=== PATIENT | female | born 2000 | race Hispanic/Latino ===

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

== ENCOUNTER 2018-03-23 12:43 | Emergency (ER) | payer OTHER ==
[~2018-03-23] VITALS: Ht 160 cm; Wt 81.6 kg
[2018-03-23] MEDS ORDERED: FAMOTIDINE 20 MG TAB PO ONE (13:00)
[2018-03-23] MEDS ORDERED: PREDNISONE 20 MG TAB PO ONE (13:00)
[2018-03-23] MEDS ORDERED: ONDANSETRON HCL INJ 2 MG/ML VIAL IV STA (13:04)
[2018-03-23] MEDS ORDERED: FAMOTIDINE 20 MG/2 ML VIAL IV NR (13:04)
[2018-03-23] MEDS ORDERED: SODIUM CHLORIDE 0.9% 1000ML 1,000 ML IV SCH (13:15)
[2018-03-23] MEDS ORDERED: DEXAMETHASONE SOD PHOS 10 MG/1 ML VIAL IV NR (13:15)
[2018-03-23] MEDS ORDERED: BENADRYL25 M1 PO (13:16)
[2018-03-23] MEDS ORDERED: EPINEPHRIN0.3 MG/0.3 IM (13:16)
[2018-03-23] MEDS ORDERED: PREDNISONE20 MG PO (13:16)
[2018-03-23] MEDS ORDERED: PEPCID20 MG PO (13:16)
[2018-03-23] MEDS ORDERED: ZOFRAN4 MG SL (13:17)
[2018-03-23 13:41] LABS: BASOPHILS # (AUTO) 0.1 (0.0-0.1); BASOPHILS % 1.1 % (0.0-1.0); EOSINOPHILS # (AUTO) 0.2 (0.0-0.4); HEMOGLOBIN 15.6 g/dL (12.0-16.0); LYMPHOCYTES # (AUTO) 2.5 (1.0-3.2); LYMPHOCYTES % 37.7 % (18.0-39.1); MEAN CORPUSCULAR HEMOGLOBIN 30.1 pg (28-32); MEAN CORPUSCULAR HGB CONC 33.9 g/dL (31-35); MEAN CORPUSCULAR VOLUME 88.8 fL (81-99); MONOCYTES # (AUTO) 0.4 (0.2-0.8); MONOCYTES % 5.8 % (4.4-11.3); NEUTROPHILS # (AUTO) 3.5 (2.1-6.9); NEUTROPHILS % 52.2 % (38.7-80.0); PLATELET COUNT 291 x10e3/uL (140-360); RED BLOOD COUNT 5.18 x10e6/uL (3.6-5.1); RED CELL DISTRIBUTION WIDTH 12.4 % (11.7-14.4)
[2018-03-23 14:01] LABS: ALANINE AMINOTRANSFERASE 38 IU/L (0-55); ALBUMIN 4.3 g/dL (3.5-5.0); ALBUMIN/GLOBULIN RATIO 0.9 (0.8-2.0); ALKALINE PHOSPHATASE 86 IU/L (40-150); AMYLASE 70 U/L (25-125); ANION GAP 14.9 mmol/L (8-16); BLOOD UREA NITROGEN 8 mg/dL (7-26); BUN/CREATININE RATIO 10 (6-25); CARBON DIOXIDE 25 mmol/L (22-29); CHLORIDE 105 mmol/L (98-107); CREATININE, SERUM 0.77 mg/dL (0.57-1.11); EST GLOMERULAR FILTRATION RATE > 60 ML/MIN (60-); GLUCOSE 78 mg/dL (74-118); LIPASE 8 U/L (8-78); POTASSIUM 3.9 mmol/L (3.5-5.1); SODIUM 141 mmol/L (136-145)
[2018-03-23 14:04] LABS: BILIRUBIN,URINE NEGATIVE (NEGATIVE); CLARITY,URINE CLEAR (CLEAR); COLOR,URINE YELLOW (YELLOW); KETONES,URINE NEGATIVE (NEGATIVE); LEUKOCYTE ESTERASE ,URINE NEGATIVE (NEGATIVE); NITRITE,URINE NEGATIVE (NEGATIVE); PROTEIN,URINE DIPSTICK NEGATIVE (NEGATIVE); URINE UROBILINOGEN 0.2 mg/dL (0.2 - 1)
[2018-03-23 14:10] LABS: HCG,QUANTITATIVE < 1.20 mIU/mL (0-10)
[2018-03-23 14:17] LABS: BACTERIA,URINE MODERATE /HPF; EPITHELIAL CELLS,URINE FEW /LPF; RBC,URINE 0-5 /HPF (0-5); WBC,URINE (MAN) 0-5 /HPF (0-5)
== END 2018-03-23 15:27 | disposition home or self-care (01) ==
LOC: ER 12:43
DX: L50.0 Allergic urticaria (principal); L24.3 Irritant contact dermatitis due to cosmetics; R11.2 Nausea with vomiting, unspecified
CPT/HCPCS: 36415; 80053; 81001; 82150; 83690; 84702; 85025; 99284; J1100; J2405; J7030

== ENCOUNTER 2018-07-24 06:04 | Emergency (ER) | payer MEDICARE, OTHER ==
[~2018-07-24] VITALS: Ht 160 cm; Wt 81.6 kg
[~2018-07-24 06:04] MED LIST: BENADRYL25 M1 PO; EPINEPHRIN0.3 MG/0.3 IM; PEPCID20 MG PO; PREDNISONE20 MG PO; ZOFRAN4 MG SL
--- OUTSIDE RECORDS SUMMARY | 2018-07-24 06:06 | XMS REPORT | Clinical Summary ---
Author Author [facility] Organization [facility] Address Unknown Phone Unavailable Care Team Providers Care Ferruler Name Role Phone Neal Santa MD PCP Allergies No Known Allergies Medications End Date Status Medication Sig Dispensed Refills Start Date Active amoxicillin (AMOXIL) 500 0 mg capsule 8 Active meclizine (ANTIVERT) 25 0 mg Tab 8 Active ondansetron (ZOFRAN-ODT) 0 4 mg disintegrating 8 tablet Active hydrocortisone 1 % Apply to 30 g 0 ointmentIndications: Rash affected area 8 and other nonspecific 2 times skin eruption daily. 12/30/2017 Discontinued acetic acid 2 % otic Instill 4 15 mL 0 solutionIndications: Drops in 8 Impacted cerumen of right right ear 3 ear times daily for 7 days. 12/30/2017 Discontinued acetic acid 2 % otic Instill 4 15 mL 0 solutionIndications: Drops in 8 Impacted cerumen of right right ear 3 ear times daily for 7 days. 01/06/2018 acetic acid 2 % otic Instill 4 15 mL 0 solutionIndications: Drops in 8 Impacted cerumen of right right ear 3 ear times daily for 7 days. Active Problems No known active problems Encounters Care Team Description Date Type Specialty Neal Santa MD Serum total bilirubin elevated 01/17/2018 Orders Only Family Practice Neal Santa MD Results 01/02/2018 Telephone Family Practice Neal Santa MD Serum total bilirubin elevated (Primary Dx) 01/02/2018 Orders Only Family Practice Neal Santa MD Preventative health care (Primary Dx); Rash and other nonspecific skin eruption; Syncope and collapse; Impacted cerumen of right ear; Lump in neck 12/30/2017 Office Visit Family Practice Neal Santa MD Syncope and collapse 12/30/2017 Orders Only Family Practice after 07/23/2017 Family History Medical History Relation Name Comments Arthritis Mother Diabetes Mother Hypertension Mother Relation Name Status Comments Mother Social History Date Tobacco Use Types Packs/Day Years Used Never Smoker Smokeless Tobacco: Never Used Alcohol Use Drinks/Week oz/Week Comments Yes social Sex Assigned at Date Recorded Not on file Industry Job Start Date Occupation Not on file Not on file Not on file Travel End Travel History Travel Start No recent travel history available. Last Filed Vital Signs Time Taken Vital Sign Reading 12/30/2017 10:39 AM CDT Blood Pressure 107/61 12/30/2017 10:39 AM CDT Pulse 78 12/30/2017 10:39 AM CDT Temperature 36.8 C (98.3 F) 12/30/2017 10:39 AM CDT Respiratory Rate 18 - Oxygen Saturation - - Inhaled Oxygen - Concentration 12/30/2017 10:39 AM CDT Weight 81.6 kg (180 lb) 12/30/2017 10:39 AM CDT Height 160 cm (5' 3") 12/30/2017 10:39 AM CDT Body Mass Index 31.89 Plan of Treatment Health Maintenance Due Date Last Done Comments IMM Influenza Seasonal 05/12/2018May to October (>/=19 yrs) Procedures Comments Procedure Name Priority Date/Time Associated Diagnosis LIPID PROFILE Routine 01/17/2018 9:38 AM CDT BILIRUBIN, DIRECT Routine 01/17/2018 Serum total bilirubin 9:38 AM CDT elevated TSH Routine 12/30/2017 Preventative [facility] care 11:27 AM CDT Rash and other nonspecific skin eruption FREE T4 Routine 12/30/2017 Preventative health care 11:27 AM CDT Rash and other nonspecific skin eruption HEPATITIS PANEL Routine 12/30/2017 [facility]ative [facility] care 11:27 AM CDT Rash and other nonspecific skin eruption SYPHILIS SCREEN FOR Routine 12/30/2017 Preventative [facility] care INFECTION 11:27 AM CDT Rash and other nonspecific skin eruption HIV-1/HIV-2 ROUTINE Routine 12/30/2017 Preventative health care SCREENING 11:27 AM CDT Rash and other nonspecific skin eruption LIVER PROFILE Routine 12/30/2017 Preventative [facility] care 11:27 AM CDT Rash and other nonspecific skin eruption BASIC METABOLIC PANEL Routine 12/30/2017 Preventative health care 11:27 AM CDT Rash and other nonspecific skin eruption HEMOGLOBIN A1C Routine 12/30/2017 Preventative health care 11:27 AM CDT Rash and other nonspecific skin eruption CBC/DIFF Routine 12/30/2017 Preventative health care 11:27 AM CDT Rash and other nonspecific skin eruption after 07/23/2017 Results * LIPID PROFILE (01/17/2018 9:38 AM CDT) Cholesterol 191 mg/dL [facility] Comment: 1 REFERENCE RANGE: Desirable: <200 mg/dL Borderline: 200-240 mg/dL High Risk: >240 mg/dL Triglyceride 228 (H) <150 mg/dL [facility] Comment: 1 REFERENCE RANGE: Normal: <150 mg/dL Borderline High: 150-199 mg/dL High: 200-499 mg/dL Very High: >tm=778 mg/dL HDL 29 mg/dL [facility] Comment: 1 Increased CHD risk: <40 mg/dL Decreased CHD risk: >60 mg/dL LDL 116 mg/dL [facility] Comment: 1 REFERENCE RANGE: Optimal: <100 mg/dL Near Optimal: 100-129 mg/dL Borderline High: 130-159 mg/dL High: 160-189 mg/dL Very High: >nt=132 mg/dL Performing Organization Address City/State/Zipcode Phone Number [facility] 1 * BILIRUBIN, DIRECT (01/17/2018 9:38 AM CDT) D Bilirubin 0.1 0.0 - 0.2 mg/dL [facility] 1 Specimen Blood Performing Organization Address City/State/Zipcode Phone Number [facility] * SYPHILIS SCREEN FOR INFECTION (12/30/2017 11:27 AM CDT) Treponemal Ab Negative BT DIAGNOSTIC IMMUNOLOGY Final Report Negative BT DIAGNOSTIC IMMUNOLOGY Performing Organization Address [facility] Phone Number [facility] BT DIAGNOSTIC IMMUNOLOGY * HIV-1/HIV-2 ROUTINE SCREENING (12/30/2017 11:27 AM CDT) HIV-1/HIV-2 Negative NEG [facility] 2 Performing Organization Address [facility] Phone Number [facility] BT [facility] 2 * HEMOGLOBIN A1C (12/30/2017 11:27 AM CDT) Hemoglobin A1c 5.9 4.3 - 6.1 % BT DIAGNOSTIC IMMUNOLOGY Est Average 122.6 mg/dL BT DIAGNOSTIC Gluc IMMUNOLOGY Specimen Blood Performing Organization Address [facility] Phone Number [facility] * TSH (12/30/2017 11:27 AM CDT) TSH 2.29 0.57 - 3.74 uIU/mL [facility] 1 Specimen Blood Performing Organization Address [facility] Phone Number [facility] * FREE T4 (12/30/2017 11:27 AM CDT) Free T4 0.78 0.61 - 1.18 ng/dl [facility] Comment: 1 females: 1st Trimester-0.52-1.10 ng/dL 2nd Trimester=0.45-0.99 ng/dL 3rd Trimester=0.48-0.95 ng/dL Specimen Blood Performing Organization Address [facility] Phone Number [facility] * LIVER PROFILE (12/30/2017 11:27 AM CDT) T Protein 8.1 6.0 - 8.3 g/dL [facility] 1 Albumin 4.5 3.7 - 5.3 g/dL [facility] 1 T Bilirubin 1.2 (H) 0.2 - 1.1 mg/dL [facility] 1 Alk Phos 68 34 - 104 U/L [facility] 1 AST 27 13 - 39 U/L [facility] 1 ALT 33 7 - 52 U/L [facility] 1 D Bilirubin 0.2 0.0 - 0.2 mg/dL [facility] 1 Specimen Blood Performing Organization [facility]/Zipcode Phone Number [facility] 1 * HEPATITIS PANEL (12/30/2017 11:27 AM CDT) HCV IgG Negative NEG [facility] 2 HBsAg Negative NEG [facility] 2 HAV, IgM Negative NEG [facility] 2 HBcAb, IgM Negative NEG [facility] 2 Specimen Blood Performing Organization Address [facility]/Zipcode Phone Number [facility] 2 * CBC/DIFF (12/30/2017 11:27 AM CDT) WBC 8.2 4.5 - 11.0 K/uL [facility] 2 RBC 4.86 4.20 - 5.40 M/uL [facility] 2 Hemoglobin 14.9 12.0 - 16.0 g/dL [facility] 2 Hematocrit 45.3 37.0 - 47.0 % [facility] 2 MCV 93 (H) 82 - 92 fL [facility] 2 MCH 30.7 27.0 - 32.0 pg [facility] 2 MCHC 32.9 32.0 - 36.0 g/dL [facility] 2 RDW 44.2 36.4 - 46.3 fL [facility] 2 Platelet 278 150 - 400 K/uL [facility] 2 Mean Platelet 12.5 (H) 9.4 - 12.4 fL [facility] Volume 2 Percent NRBC 0.0 [facility] 2 Absolute NRBC 0.00 [facility] 2 Neutrophil 62.1 34.0 - 70.0 % [facility] 2 Lymphocyte 28.4 20.0 - 50.0 % [facility] 2 Monocyte 6.6 5.0 - 12.0 % [facility] 2 Eosinophil 1.7 0.7 - 5.0 % [facility] 2 Basophil 1.0 0.1 - 1.2 % [facility] 2 Pct Immat Gran 0.2 0.0 - 0.5 BT [facility] 2 Neutrophil, Abs 5.09 1.56 - 6.13 K/uL [facility] 2 Lymphocyte, Abs 2.33 1.18 - 3.74 K/uL [facility] 2 Monocyte, Abs 0.54 (H) 0.24 - 0.36 K/uL [facility] 2 Eosinophil, Abs 0.14 0.04 - 0.36 K/uL [facility] 2 Basophil, Abs 0.08 0.01 - 0.08 K/uL [facility] 2 Absol Immat 0.02 0.00 - 0.03 K/uL [facility] Gran 2 Specimen Blood Performing Organization Address City/[facility] Phone Number [facility] 2 * BASIC METABOLIC PANEL (12/30/2017 11:27 AM CDT) [facility] Signature CO2 27 21 - 31 mmol/L [facility] 1 Chloride 101 98 - 107 mmol/L [facility] 1 Potassium 4.1 3.5 - 5.1 mmol/L [facility] 1 Sodium 138 136 - 145 mmol/L [facility] 1 Glucose 88 70 - 110 mg/dL [facility] 1 Urea Nitrogen 7 7 - 25 mg/dL [facility] 1 Creatinine 0.60 0.6 - 1.2 mg/dL [facility] 1 Anion Gap 10 [facility] 1 Calcium 10.0 8.6 - 10.3 mg/dL [facility] 1 GFR, Estimated >60 mL/min/1.73 m2 [facility] 1 GFR, Estim, >60 mL/min/1.73 m2 [facility] Afr-Am 1 Specimen Blood Performing Organization Address City/[facility] Phone Number [facility] 1 after 07/23/2017 Insurance Type Payer Benefit Subscriber ID Effective Phone Address Plan / Dates Group [facility]P [phone] [address] [facility] [address] [place] [address]
[2018-07-24] MEDS ORDERED: SODIUM CHLORIDE 0.9% 1000ML 1,000 ML IV STA (06:21)
[2018-07-24] MEDS ORDERED: PANTOPRAZOLE 40 MG 10ML VIAL IV NR (06:21)
[2018-07-24] MEDS ORDERED: ONDANSETRON HCL INJ 2 MG/ML VIAL IV NR (06:21)
[2018-07-24 06:55] LABS: BASOPHILS # (AUTO) 0.1 (0.0-0.1); BASOPHILS % 0.6 % (0.0-1.0); EOSINOPHILS # (AUTO) 0.3 (0.0-0.4); EOSINOPHILS % 3.3 % (0.0-6.0); HEMATOCRIT 43.2 % (34.2-44.1); HEMOGLOBIN 15.2 g/dL (12.0-16.0); LYMPHOCYTES # (AUTO) 1.7 (1.0-3.2); MEAN CORPUSCULAR HEMOGLOBIN 30.4 pg (28-32); MEAN CORPUSCULAR HGB CONC 35.2 g/dL (31-35); MEAN CORPUSCULAR VOLUME 86.4 fL (81-99); MONOCYTES # (AUTO) 0.4 (0.2-0.8); MONOCYTES % 5.5 % (4.4-11.3); NEUTROPHILS # (AUTO) 5.6 (2.1-6.9); NEUTROPHILS % 69.4 % (38.7-80.0); PLATELET COUNT 282 x10e3/uL (140-360); RED CELL DISTRIBUTION WIDTH 12.1 % (11.7-14.4)
[2018-07-24 07:10] LABS: ALANINE AMINOTRANSFERASE 42 IU/L (0-55); ALBUMIN 4.1 g/dL (3.5-5.0); ALKALINE PHOSPHATASE 77 IU/L (40-150); AMYLASE 56 U/L (25-125); ANION GAP 13.7 mmol/L (8-16); BLOOD UREA NITROGEN 8 mg/dL (7-26); BUN/CREATININE RATIO 11 (6-25); CALCIUM 9.6 mg/dL (8.4-10.2); CARBON DIOXIDE 21 mmol/L (22-29); CHLORIDE 104 mmol/L (98-107); CREATININE, SERUM 0.72 mg/dL (0.57-1.11); EST GLOMERULAR FILTRATION RATE > 60 ML/MIN (60-); GLUCOSE 118 mg/dL (74-118); LIPASE 7 U/L (8-78); MAGNESIUM 2.1 MG/DL (1.3-2.1); POTASSIUM 3.7 mmol/L (3.5-5.1); SODIUM 135 mmol/L (136-145)
[2018-07-24 08:01] LABS: CLARITY,URINE CLEAR (CLEAR); COLOR,URINE YELLOW (YELLOW)
[2018-07-24 08:02] LABS: BILIRUBIN,URINE NEGATIVE (NEGATIVE); KETONES,URINE NEGATIVE (NEGATIVE); LEUKOCYTE ESTERASE ,URINE TRACE (NEGATIVE); NITRITE,URINE NEGATIVE (NEGATIVE); PROTEIN,URINE DIPSTICK NEGATIVE (NEGATIVE); URINE UROBILINOGEN 0.2 mg/dL (0.2 - 1)
[2018-07-24] MEDS ORDERED: KETOROLAC TROMETHAMINE 30 MG/ML VIAL IV NR (08:05)
[2018-07-24 08:13] LABS: BACTERIA,URINE MANY /HPF; EPITHELIAL CELLS,URINE MODERATE /LPF; RBC,URINE 0-5 /HPF (0-5)
--- NOTE | 2018-07-24 09:20 | Diagnostic Imaging Report ---
PROCEDURE:ABDOMEN 2 VIEW COMPARISON:None. INDICATIONS:RIGHT UPPER ABDOMINAL PAIN FINDINGS:The bowel gas pattern shows no dilated, air-filled loops of bowel. No mass effect or organomegaly. No abnormal abdominal calcifications. Regional skeletal structures are intact. CONCLUSION: Nonobstructive bowel gas pattern. Dictated by: Oc Espinosa M.D. on 07/24/2018 at 9:30 Electronically approved by: Oc Espinosa M.D. on 07/24/2018 at 9:30
[2018-07-24] MEDS ORDERED: DONNATAL/LIDOCAINE/MAALOX 30 ML SUSP PO NR ×2 (10:30→10:45)
[2018-07-24] MEDS ORDERED: PEPCID40 MG PO (10:38)
[2018-07-24] MEDS ORDERED: OMEPRAZOLE40 MG PO (10:39)
== END 2018-07-24 11:55 | disposition home or self-care (01) ==
LOC: ER 06:04
DX: R11.2 Nausea with vomiting, unspecified (principal); R10.9 Unspecified abdominal pain; R19.7 Diarrhea, unspecified; E78.5 Hyperlipidemia, unspecified
CPT/HCPCS: 36415; 74019; 80053; 81001; 81025; 82150; 83690; 83735; 85025; 99284; J1885; J2405; J7030

== ENCOUNTER 2019-03-28 22:32 | Emergency (ER) | payer SELFPAY ==
[~2019-03-28] VITALS: Ht 160 cm; Wt 81.6 kg
[~2019-03-28 22:32] MED LIST changes: +OMEPRAZOLE40 MG PO; +PEPCID40 MG PO
[2019-03-28] MEDS ORDERED: DEXAMETHASONE SOD PHOS 10 MG/1 ML VIAL IV ONE (23:30)
[2019-03-28 23:44] LABS: BASOPHILS % 0.6 % (0.0-1.0); EOSINOPHILS # (AUTO) 0.2 (0.0-0.4); EOSINOPHILS % 3.2 % (0.0-6.0); HEMATOCRIT 40.9 % (34.2-44.1); HEMOGLOBIN 13.8 g/dL (12.0-16.0); LYMPHOCYTES # (AUTO) 2.8 (1.0-3.2); LYMPHOCYTES % 44.3 % (18.0-39.1); MEAN CORPUSCULAR HEMOGLOBIN 30.2 pg (28-32); MEAN CORPUSCULAR HGB CONC 33.7 g/dL (31-35); MEAN CORPUSCULAR VOLUME 89.5 fL (81-99); MONOCYTES # (AUTO) 0.5 (0.2-0.8); MONOCYTES % 8.5 % (4.4-11.3); NEUTROPHILS # (AUTO) 2.7 (2.1-6.9); NEUTROPHILS % 43.2 % (38.7-80.0); PLATELET COUNT 253 x10e3/uL (140-360); RED BLOOD COUNT 4.57 x10e6/uL (3.6-5.1); RED CELL DISTRIBUTION WIDTH 12.7 % (11.7-14.4)
[2019-03-29 00:02] LABS: ALANINE AMINOTRANSFERASE 33 IU/L (0-55); ALBUMIN 3.9 g/dL (3.5-5.0); ALKALINE PHOSPHATASE 74 IU/L (40-150); ANION GAP 12.8 mmol/L (8-16); BLOOD UREA NITROGEN 6 mg/dL (7-26); BUN/CREATININE RATIO 8 (6-25); CALCIUM 9.4 mg/dL (8.4-10.2); CARBON DIOXIDE 28 mmol/L (22-29); CHLORIDE 104 mmol/L (98-107); CREATININE, SERUM 0.76 mg/dL (0.57-1.11); EST GLOMERULAR FILTRATION RATE > 60 ML/MIN (60-); GLUCOSE 111 mg/dL (74-118); POTASSIUM 3.8 mmol/L (3.5-5.1); SODIUM 141 mmol/L (136-145)
[2019-03-29] MEDS ORDERED: IOPAMIDOL 370 MG/ML 200 ML INFUS..BTL INJ ONE (00:13)
[2019-03-29] MEDS ORDERED: SODIUM CHLORIDE 0.9% 50ML 50 ML ONE (00:13)
--- NOTE | 2019-03-29 01:14 | Diagnostic Imaging Report ---
CT SOFT TISSUE NECK W HISTORY: Lump anterior neck, intermittent; recent fever, difficulty swallowing COMPARISON: Head CT 12/22/2018 TECHNIQUE: Axial CT images were obtained through the neck with intravenous, iodine based contrast. Coronal and sagittal reconstructions obtained from the axial data. One or more of the following dose reduction techniques were used: Automated exposure control, adjustment of the mA and/or kV according to patient size, and/or utilization of iterative reconstruction technique. DISCUSSION: Approximately 1.3 x 1.2 x 1.7 cm, circumscribed, round, paramedian, subcutaneous cystic mass is seen anterior to the thyroid cartilage. The rich of this cystic mass are slightly thickened, especially superiorly. There is subtle adjacent fat stranding. Associated, small soft tissue tract is directed towards the thyrohyoid membrane. The palatine tonsils are mildly enlarged. Otherwise, the visualized upper aerodigestive tract is unremarkable. Mildly prominent left upper jugular chain lymph nodes measure up to 2.2 cm in size. No other radiographically significant cervical adenopathy is seen. The thyroid gland is unremarkable. The submandibular and parotid glands are unremarkable. The major cervical vessels are unremarkable. The poultry processor, parapharyngeal, posterior cervical, and perivertebral spaces are unremarkable. The visualized intracranial compartment and orbits are grossly unremarkable. The paranasal sinuses are clear. No destructive osseous lesions are seen. The upper lungs are unremarkable. IMPRESSION: 1. 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 Associated mild wall thickening and subtle adjacent fat stranding are suggestive of superimposed infection/inflammation. 2. Mildly enlarged palatine tonsils may be due to tonsillitis. No evidence for associated abscess. 3. Mild left upper jugular chain lymphadenopathy may be reactive. Signed by: Dr. Leonardo Parmar M.D. on 03/29/2019 1:11 AM
[2019-03-29] MEDS ORDERED: AUGMENTIN 875-1 EACH PO (01:31)
[2019-03-29 01:42] VITALS: BP 102/65
== END 2019-03-29 02:08 | disposition home or self-care (01) ==
LOC: ER 22:32
DX: J03.90 Acute tonsillitis, unspecified (principal); K21.9 Gastro-esophageal reflux disease without esophagitis; E78.5 Hyperlipidemia, unspecified
CPT/HCPCS: 36415; 70491; 80053; 84702; 85025; 99283; Q9967